=== PATIENT | male | born 1955 | race Caucasian/White ===

== ENCOUNTER → 2021-09-07 08:21 | Outpatient (CLI) | payer OTHER, SELFPAY ==
[2021-09-14 15:48] LABS: Testosterone % Fr + Wkly bound 14.7 % (9.0-46.0); Testosterone Fr+Wkly bound 67.8 ng/dL (40.0-250.0); Testosterone, Total 461.4 ng/dL (264.0-916.0)
== END ==
PROVIDERS: PCP Internal Medicine; Referring Provider Urology; Visit Provider Urology
DX: E29.1 Testicular hypofunction (principal)
CPT/HCPCS: 36415; 84403